=== PATIENT | female | born 1945 | race Caucasian/White ===

== ENCOUNTER 2022-07-29 12:40 | Inpatient (IN) | payer MEDICARE ==
[~2022-07-29] VITALS: Ht 157.5 cm; Wt 89.3 kg
[2022-07-29 13:26] LABS: BASO # 0.1 K/mm3 (0.0-0.2); BASO % 0.9 % (0.0-2.0); GRAN # 7.4 K/mm3 (1.4-6.5); GRAN % 72.4 % (42.2-75.2); HEMOGLOBIN 12.9 g/dl (12.5-16.0); LYMPH # 2.1 K/mm3 (1.2-3.4); LYMPH % 20.6 % (20.0-51.0); MEAN CELL VOLUME 96 fl (80.0-100.0); MEAN CORPUSCULAR HEMOGLOBIN 29 pg (27-31); MEAN CORPUSCULAR HGB CONC 31 g/dl (33.0-37.0); MEAN PLATELET VOLUME 9.9 fl (7.4-10.4); MONO # 0.6 K/mm3 (0.1-0.6); MONO % 5.5 % (1.7-9.3); PLATELET COUNT 384 K/mm3 (130-400); REDCELL DISTRIBUTION WIDTH-CV 15.9 % (11.5-14.5)
[2022-07-29 13:40] LABS: ALANINE AMINOTRANSFERASE 9 U/L (0-55); ALBUMIN 3.7 gm/dL (3.4-4.8); ALKALINE PHOSPHATASE 94 U/L (40-150); ANION GAP 8 mmol/L (7-16); AST,SGOT 12 U/L (5-34); BILIRUBIN,TOTAL 0.5 mg/dL (0.2-1.2); BLOOD UREA NITROGEN 17 mg/dL (10-20); CALCIUM 10.9 mg/dL (8.4-10.2); CARBON DIOXIDE 27 mmol/L (23-31); CHLORIDE 106 mmol/L (98-107); CREATININE, serum 1.38 mg/dL (0.57-1.11); GLUCOSE 121 mg/dL (70-99); POTASSIUM 4.9 mmol/L (3.5-4.5); SODIUM 141 mmol/L (136-145); TOTAL PROTEIN 8.4 gm/dL (6.2-8.1)
[2022-07-29 13:47] LABS: TROPONIN-I < 0.010 ng/mL (0.00-0.033)
[2022-07-29] MEDS ORDERED: FOSAMAX 70MG TA70 MG PO (15:46)
[2022-07-29] MEDS ORDERED: LIPITOR 40MG TA40 MG PO (15:48)
[2022-07-29] MEDS ORDERED: PLAVIX 75MG TAB75 MG PO (15:49)
[2022-07-29] MEDS ORDERED: GLUCOPHAGE500 MG/TAB PO (15:50)
[2022-07-29] MEDS ORDERED: LOPRESSOR 550 MG/TAB PO (15:51)
[2022-07-29] MEDS ORDERED: NORVASC 10MG10 MG PO (15:53)
[2022-07-29] MEDS ORDERED: PRINIVIL40 MG PO (15:54)
[2022-07-29] MEDS ORDERED: LUMIGAN 5 ML5 M1 OU (15:55)
[2022-07-29] MEDS ORDERED: CYMBALTA 20MG20 MG PO (15:56)
[2022-07-29] MEDS ORDERED: LASIX 20MG TABL20 MG PO (15:57)
[2022-07-29] MEDS ORDERED: MASON NATURAL2000 IU PO (15:58)
[2022-07-29 17:37] VITALS: BP 156/62; PULSE 66; TEMP 97.5
--- NOTE | 2022-07-29 18:38 | NUR ---
PATIENT ADMITTED TO ROOM 307 VIA BED FROM ED ACCOMPANIED BY ED STAFF. ALERT AND ORIENTED X4. DENIES ANY PAIN. LUNGS COARSE THROUGHOUT. ON 2-3L O2 VIA NC. HR REGULAR. +3 EDEMA TO BLE. NO NOTABLE SKIN ISSUES. PATIENT VISITING FAMILY AND IS FROM [place]. STATES SHE DOES HAVE A SUPPORT SYSTEM HERE. TALBOT CATH INSERTED PER ORDER USING STERILE TECHNIQUE, PATIENT TOLERATED WELL, PALE YELLOW URINE DRAINING WELL. DENIES ANY NEEDS AT THIS TIME. ORIENTED TO ROOM .FAMILY AT BEDSIDE. CALL LIGHT WITHIN REACH, BED IN LOWEST, LOCKED POSITION.
--- NOTE | 2022-07-29 19:22 | NUR ---
CALL LIGHT WITHIN REACH. NAME WRITTEN ON BOARD. TOLERATED WELL. NO DISTRESS NOTED. NO CONCERNS VOICED.
[2022-07-29 19:49] VITALS: BP 147/102; PULSE 78; TEMP 97.6
[2022-07-30] VITALS (18 sets, daily range): BP systolic 121–152; BP diastolic 40–59; PULSE 61–88; TEMP 97.6–98.5
--- NOTE | 2022-07-30 04:17 | NUR ---
PATIENT RECEIVING LASIX 60MG. DIURESING. DOES NOT C/0 PAIN. SWELLING GOING DOWN ON BLE. 2+
[2022-07-30 05:10] LABS: ARTERIAL BLD GAS O2 SATURATION 95.9 % (92-100); ARTERIAL BLD GAS TCO2 CT 33.7; ARTERIAL BLOOD GAS BASE EXCESS 7.4 (-2-2); ARTERIAL BLOOD GAS HCO3 32.3 meq/L (22-26); ARTERIAL BLOOD GAS PCO2 47.2 mmHg (35-45); ARTERIAL BLOOD GAS PO2 78.5 mmHg (80-100); ARTERIAL BLOOD GAS pH 7.45 (7.35-7.45)
[2022-07-30 06:36] LABS: BASO # 0.1 K/mm3 (0.0-0.2); BASO % 0.8 % (0.0-2.0); GRAN # 5.8 K/mm3 (1.4-6.5); GRAN % 65.3 % (42.2-75.2); LYMPH # 2.4 K/mm3 (1.2-3.4); LYMPH % 27.1 % (20.0-51.0); MEAN CELL VOLUME 93 fl (80.0-100.0); MEAN CORPUSCULAR HGB CONC 32 g/dl (33.0-37.0); MONO # 0.6 K/mm3 (0.1-0.6); MONO % 6.5 % (1.7-9.3); PLATELET COUNT 299 K/mm3 (130-400); RED BLOOD COUNT 3.72 M/mm3 (4.10-5.30); REDCELL DISTRIBUTION WIDTH-CV 15.9 % (11.5-14.5)
[2022-07-30 06:37] LABS: HEMATOCRIT 34.5 % (37.0-47.0); HEMOGLOBIN 10.9 g/dl (12.5-16.0); MEAN CORPUSCULAR HEMOGLOBIN 29 pg (27-31)
[2022-07-30 06:52] LABS: CREATININE, serum 1.15 mg/dL (0.57-1.11); MAGNESIUM 1.7 mg/dL (1.6-2.6)
[2022-07-30 07:03] LABS: TROPONIN-I 0.019 ng/mL (0.00-0.033)
--- NOTE | 2022-07-30 10:19 | NUR ---
Initial visit; Patient thanked Junior Net Developer for looking in on her and offering encouragement and to keep her in her prayers. Patient states she has had wonderful care here at [facility] and thanks Junior Net Developer for coming to visit.
--- NOTE | 2022-07-30 11:04 | NUR ---
SEE MERGE FOR VITAL SIGNS, ASSESSMENTS, INTERVENTIONS AND MEDICATIONS GIVEN.
[2022-07-30 11:29] LABS: INR 1.1 (0.8-3.0)
[2022-07-30 11:31] LABS: PARTIAL THROMBOPLASTIN TIME 30.1 SECONDS (26.0-37.0)
--- NOTE | 2022-07-30 12:00 | NUR ---
Patient back from cardiac cath. Radial band on, site CDI. Soft soft, no hematoma noted. Dynamap in use for post op vitals. Call light in reach.
--- NOTE | 2022-07-30 15:39 | NUR ---
Digital Media Intern met with patient to discuss discharge planning. Patient's daughter, Carla is at bedside. Patient lives in [place], [place] with her , Magdy. Patient is here visiting her daughter, Carla and has three children: Carla, Gabrielle, and Cortez. Patient sees Dr. Patricio Barakat at a clinic in [place], [place] for primary care. Patient has no difficulty obtaining medications. Patient uses a cane for ambulation and also has a CPAP. Patient does not normally wear oxygen but currently is using it. Patient is normally independent with ADLS and plans to return either home or with her daughter here in [place] depending on her progress. Patient does not have DPOA-HC. Discharge Plan: Home
--- NOTE | 2022-07-30 19:04 | NUR ---
Bruising noted around radial site. Site soft and free from hematoma. VSS. Dr. Jenkins made aware.
[2022-07-31] VITALS (8 sets, daily range): BP systolic 102–143; BP diastolic 38–70; PULSE 54–80; TEMP 97.6–98.3
--- NOTE | 2022-07-31 06:37 | NUR ---
PATIENT RESTED QUIETLY THIS SHIFT. PATIENT TR BAND REMOVED AND NO FURTHER BLEEDING NOTED. WRIST SOFT WITH BRUISING THE SAME. PATIENT RECEIVED NO PRN MEDICATIONS. PATIENT ABLE TO BE WEANED TO ROOM AIR WHILE AWAKE HOWEVER PATIENT DESATURATTED TO THE MID 7OS WHILE SLEEPING. PATIENT REPORTED SHE USED TO WEAR OXYGEN AT NIGHT BUT NO LONGER HAS TO AFTER SLEEP STUDY. PATIENT PLACED ON BIPAP AND PATIENT TOLERATED WELL. PATIENT UP TO BATHROOM WITH STANDBY ASSISTANCE AND HAD BOWEL MOVEMENT.
--- NOTE | 2022-07-31 08:58 | NUR ---
Patient sitting up in chair. She ambulated the halls with therapy. She did well, reports feeling much better. She is glad she can sit up and walk without extreme dyspnea. Int. Right radial site with brusing. no dressing. splint on. Patient reports her edema is much improved, still very slight edema to BLE. Patient reports skin tenderness from her skin being stretched from the edema. Overall patient in good spirits & hopful for dc today.
--- NOTE | 2022-07-31 10:47 | NUR ---
has rounded, plan of care reviewed. Keira given, plans to DC viridiana this afternoon.
--- NOTE | 2022-07-31 12:10 | NUR ---
Header Operator rounds: Header Operator attempted visit. Patient was sleeping in recliner.
--- NOTE | 2022-07-31 13:26 | NUR ---
Patient sitting up in chair. Alejandro removed, she tolerated well. She had lunch and did well, but needing fixodent for her dentures. tele on. Vss. Will monitor.
--- NOTE | 2022-07-31 14:28 | NUR ---
Patient independent in her room. We reviewed her CHF notebook, she was thankful for education given
--- NOTE | 2022-07-31 17:53 | NUR ---
Patient resting in bed. She did well with dinner. Sales Rep assisted her to shower. Will report off to nightnurse
[2022-08-01] VITALS: BP 135/77; PULSE 65; TEMP 98.5
[2022-08-01 05:49] VITALS: BP 122/62; PULSE 71; TEMP 98
--- NOTE | 2022-08-01 06:14 | NUR ---
PATIENT RESTED QUIETLY THIS SHIFT. PATIENT HAD NO COMPLAINTS OF PAIN AND RECEIVED NO PRN MEDICATIONS. PATIENT WORE BIPAP ALL SHIFT AND TOLERATED WELL.
[2022-08-01 07:05] VITALS: BP 130/38; PULSE 64; TEMP 97.8
[2022-08-01 08:24] LABS: BASO # 0.1 K/mm3 (0.0-0.2); BASO % 0.7 % (0.0-2.0); GRAN # 5.4 K/mm3 (1.4-6.5); GRAN % 63.7 % (42.2-75.2); HEMOGLOBIN 10.6 g/dl (12.5-16.0); LYMPH # 2.2 K/mm3 (1.2-3.4); LYMPH % 26.3 % (20.0-51.0); MEAN CELL VOLUME 95 fl (80.0-100.0); MEAN CORPUSCULAR HEMOGLOBIN 30 pg (27-31); MEAN CORPUSCULAR HGB CONC 31 g/dl (33.0-37.0); MEAN PLATELET VOLUME 10.7 fl (7.4-10.4); MONO # 0.8 K/mm3 (0.1-0.6); MONO % 8.9 % (1.7-9.3); PLATELET COUNT 317 K/mm3 (130-400); RED BLOOD COUNT 3.59 M/mm3 (4.10-5.30); REDCELL DISTRIBUTION WIDTH-CV 16.3 % (11.5-14.5)
[2022-08-01] MEDS ORDERED: DOXYCYCLINE 10100 MG PO (08:30)
[2022-08-01 08:41] LABS: CALCIUM 9.8 mg/dL (8.4-10.2); CREATININE, serum 1.32 mg/dL (0.57-1.11); POTASSIUM 4.2 mmol/L (3.5-4.5)
--- NOTE | 2022-08-01 09:17 | NUR ---
O2 TURNED OFF WITH PT SITTING ON EDGE OF BED EATING BREAKFAST. O2 CHECK AFTER 15 MINUTES SPO2 86% O2 BACK ON @ 1 LPM
[2022-08-01] MEDS ORDERED: OXYGEN NASAL.CANN (09:31)
--- NOTE | 2022-08-01 10:52 | NUR ---
PT SITTING UP IN BED. MORNING MEDICATIONS GIVEN. SHIFT ASSESSMENT COMPLETED. CURRENTLY ON 2L OF O2 VIA NC. AMBULATING AROUND ROOM INDEPENDENTLY. DENIES ANY PAIN OR NEEDS. UPDATED ON POC.
[2022-08-01 12:18] VITALS: BP 121/54; PULSE 75; TEMP 97.6
--- NOTE | 2022-08-01 13:02 | NUR ---
DISCHARGE INSTRUCTIONS GIVEN, ALL QUESTIONS ANSWERED. IV D/C. TELE D/C. PT WAITING FOR RIDE TO ARRIVE.
--- NOTE | 2022-08-01 13:34 | NUR ---
NIGEL informed that patient would be discharging on this day and would need O2 upon DC. NIGEL met with patient to discuss choice O2 of her choice. Patient states that she would like to proceed of obtaining O2 from [facility]. SW obtained O2 documenation, physician signed, and faxed to facility and called medical detail representative. Facility Practice Specialist contacted and brought up O2. Patient stated she secured transportation from her daughter upon DC. Nothing further.
--- NOTE | 2022-08-01 13:56 | NUR ---
PT ESCORTED DOWN TO VEHICLE WITH VIA CINDY STAFF. WILL D/C FROM SYSTEM.
== END 2022-08-01 13:56 | disposition home or self-care (01) | DRG 286 ==
LOC: COL.ER 12:40 → MEDICAL 15:01
PROVIDERS: Personal Emergency Response Attendant; ADMIT Internal Medicine
PROC: 5A09457 Assistance with Respiratory Ventilation, 24-96 Consecutive Hours, Continuous Positive Airway Pressure (ICD-10-PCS; 2022-07-29)
PROC: 4A023N7 Measurement of Cardiac Sampling and Pressure, Left Heart, Percutaneous Approach (ICD-10-PCS; principal; 2022-07-30)
PROC: B2111ZZ Fluoroscopy of Multiple Coronary Arteries using Low Osmolar Contrast (ICD-10-PCS; 2022-07-30)
DX: I13.0 Hypertensive heart and chronic kidney disease with heart failure and stage 1 through stage 4 chronic kidney disease, or unspecified chronic kidney disease (principal); I50.33 Acute on chronic diastolic (congestive) heart failure; J96.01 Acute respiratory failure with hypoxia; E78.5 Hyperlipidemia, unspecified; G47.33 Obstructive sleep apnea (adult) (pediatric); E11.22 Type 2 diabetes mellitus with diabetic chronic kidney disease; N18.30 Chronic kidney disease, stage 3 unspecified; Z79.84 Long term (current) use of oral hypoglycemic drugs; Z88.0 Allergy status to penicillin; Z86.73 Personal history of transient ischemic attack (TIA), and cerebral infarction without residual deficits
CPT/HCPCS: A4314; C1769; C1887; J1644; J1815; J1940; J2250; J3010; Q9967